=== PATIENT | female | born 1950 | race Caucasian/White ===

== ENCOUNTER 2016-11-01 14:02 | Day surgery (SDC) | payer MEDICARE, BC ==
--- NOTE | ~2016-11-01 | OP ---
Record Of Operation [facility] [address] [place]. [address] NAME: JOSE ANTONIO PRYOR : 54 STATUS : [facility]#: [id number] AGE: 66 ADM/REG DATE : 11/01/16 MR#: [id number] REPORT SERV DATE: 11/01/16 DICTATED BY: PANCHITO HARVEY DATE: 11/01/16 REPORT STATUS : Draft TRANSCRIBED BY: MILAGROS DATE: 11/01/16 DATE OF PROCEDURE: 11/01/2016 PREPROCEDURE DIAGNOSIS: 3 mm distal left ureteral calculus. POSTPROCEDURE DIAGNOSIS: 3 mm distal left ureteral calculus. PROCEDURE: Left ESWL. METAL NUMERICAL CONTROL PROGRAMMER: Yasemin Blake. ANESTHESIA: MAC. HISTORY: Ms. Pryor is a 66-year-old white female, with a symptomatic left ureteral calculus. We discussed treatment options and she requested left ESWL. Risks specific to this procedure include, but not limited to bleeding, infection, incomplete stone fragmentation, Steinstrasse, hematoma, injury to neighboring organs, need for further urologic procedures, anesthesia complications, and so forth. I answered all her questions I believe to her satisfaction. Subsequently, she requested the procedure and provided her informed written consent. PROCEDURE IN DETAIL: On 11/01/2016, the patient was brought to the lithotripsy suite. She was placed supine on the Dornier Compact Delta II lithotriptor. Biplanar fluoroscopy was used to localize the left ureteral calculus. A time-out was called. The proper patient and procedure were confirmed. Levaquin was administered as a perioperative antibiotic. At this time, the Anesthesia team established monitored anesthesia care. Subsequently, we delivered a total of 3000 shocks at a maximum power level of 5 and rate of 120 shocks per minute to the stone. Fluoroscopy time was 2 minutes, 7 seconds. The patient tolerated the procedure well without immediate complications. She was awakened and transferred to the recovery area in stable condition. MARCO/MILAGROS Panchito Harvey M.D. / [id number] CC: Deejay Branchald Jarl, M.D.
[~2016-11-01 14:02] MED LIST: AMBIEN CR12.5 MG PO; NORCO1 TA1 PO; ULTRACET PO; ZANAFLEX2 MG PO
== END 2016-11-01 18:53 | disposition home or self-care (01) ==
LOC: SDC 14:02
PROVIDERS: Urology
PROC: 0TF7XZZ Fragmentation in Left Ureter, External Approach (ICD-10-PCS; principal; 2016-11-01 15:45)
DX: N20.2 Calculus of kidney with calculus of ureter (principal); N28.89 Other specified disorders of kidney and ureter; M79.7 Fibromyalgia; K21.9 Gastro-esophageal reflux disease without esophagitis; K44.9 Diaphragmatic hernia without obstruction or gangrene; F17.200 Nicotine dependence, unspecified, uncomplicated; Z86.79 Personal history of other diseases of the circulatory system; Z86.69 Personal history of other diseases of the nervous system and sense organs; Z85.41 Personal history of malignant neoplasm of cervix uteri; Z90.710 Acquired absence of both cervix and uterus; Z88.0 Allergy status to penicillin; Z88.2 Allergy status to sulfonamides; Z91.018 Allergy to other foods
CPT/HCPCS: 50590; 74400; 93005; A9270-GY; J2370; J3010; Q9967